=== PATIENT | male | born 1955 | race Caucasian/White ===

== ENCOUNTER 2016-04-25 05:50 | Day surgery (SDC) | payer OTHER ==
[~2016-04-25] VITALS: Ht 168.9 cm; Wt 77.4 kg
[2016-04-25] VITALS (9 sets, daily range): BP systolic 96–132; BP diastolic 64–86; PULSE 65–74; RESP 11–18; O2SAT 95–100
[2016-04-25] MEDS: Lactated Ringer's 1,000 ML IV SCH ×2 (05:20→07:33)
[2016-04-25] MEDS ORDERED: Lidocaine PF 1% 30 mL Inj ONE (05:51)
[2016-04-25] MEDS ORDERED: Propofol 10,000 mCg/mL 20 mL Inj ONE (05:51)
[2016-04-25] MEDS ORDERED: Dexamethasone 4 mg/mL Inj ONE (05:51)
[2016-04-25] MEDS ORDERED: MetoCLOpramide 5 mg/mL 2 mL Inj ONE (05:51)
[2016-04-25] MEDS ORDERED: Ondansetron 2 mg/mL 2 mL Inj ONE (05:51)
--- NOTE | 2016-04-25 07:18 | PCM.HPANE ---
Patient Data Date of Service: Apr 25, 2016 Surgeon Admitting Provider: Attending Provider:Viola Dejesus MD Primary Care Physician:Radha Garcia Other Provider:Akhil Regalado Anesthesia Reason for Visit Malignant Neoplasm Of Bladder Ht/WT & BMI Height (Feet): 5 Height (Inches): 6.50 Weight (Kilograms): 77.4 Body Mass Index 27.00 Allergies Coded Allergies: Penicillins (Verified Allergy, Unknown, UNKNOWN (CHILDHOOD)-HAS TAKEN ANCEF IN THE PAST W/O PROBLEM, 04/24/16) Past Anesthesia History Anesthesia History: Denies:: Anesthesia Reactions, Malignant Hyperthermia Diabetes History Hx Diabetes?: No MRSA MRSA: No Medications Hypertension Medication: No Home Meds Incl Beta Soto: No Discontinued Reported Medications Loratadine (Claritin)10 Mg [id number] Mg PO DAILY PRN allergy sx Ref 0 11/01/15 History History of ENT Problems?: Yes HEENT History: Positive for:: Sinus Problem (HAY FEVER) Hx of Heart Problems?: No Cardiovascular History: Denies:: Chest Pain Coronary Artery Disease Heart Murmur Hypertension Other Cardiac History: denies SOB Hx of Respiratory Problem?: Yes Respiratory History: Denies:: Oxygen Administration Use of C-PAP Machine Other Resp Pertinent History: smokes marijuana daily Hx Neurologic Problems?: No Neurological History: Denies:: CVA Multiple Sclerosis Parkinson's Disease Seizures Hx of GI Problems?: Yes Other GI Pertinent History: h/o ETOH abuse, quit 2009, denies cirrhosis or liver dysfunction Hx of Problems?: Yes Genitourinary History: Denies:: Kidney Stones Other Pertinent History: S/P TURBT FOR BLADDER CA,URETHRAL DILATION IN CHILDHOOD FINISHED BCG 6 WKS AGO MALIGNANT NEOPLASM OF BLADDER=CURRENT PROBLEM Male Hx: Denies:: Prostate Problems Scrotal Mass Testicular Surgery (S/P VASECTOMY) Skin History: Denies:: History Skin Disorders? Pressure Ulcers Hx Musculoskeletal Problems?: No Hx of Psycho/Social Problems?: No Hx Surgeries?: Yes (vasectomy, urethral dil) Hx Any Other Health Problems?: Yes Other History: Positive for:: Cancer (BLADDER) Denies:: Endocrine Disease Hospitalization Thyroid Disease History Blood Transfusions: Denies:: Blood Transfusions Hx Diabetes: No Hx Alcohol Use: No (HX OF ABUSE QUIT 2009)Hx Substance Use: Yes (marijuana - daily, smoke) Smoking Status: Former Smoker Have You Smoked inLast 12 mo: YesApprox How Many Cigarettes/day: CHEWED OFF & ON 30YRS Stop/Bang Treated for Sleep Apnea?: No Do You Have a CPAP Machine?: No S-Snoring: Do You Snore Loudly: No T-Tired: feel tired, fatigued: No O-Obsered: Observed not breath: Yes P-Blood Pressure: treated: No B- Body Mass Index > 35 kg/m2: No A- Age over 50: Yes N- Neck Large Circumference: No G- Gender Male: Yes SURESH Total Score: 3 SURESH Risk Assessment: Low Risk, <3 Yes Risk Assessment Category Category 1A: Patient has history of documented sleep apnea, and HAS NOT received any narcotic, sedative or anesthesia administration during this stay. Category 1B: Patient has history of documented sleep apnea, and HAS received any narcotic , sedative or anesthesia administration during this stay Category 2: Patient has SUSPECTED Obstructive Sleep Apnea, and HAS received any narcotic , sedative or anesthesia administration during this stay. Category 3: Patient has SUSPECTED Obstructive Sleep Apnea and HAS NOT received narcotic, sedative or anesthesia administration during this stay. Category 4: Outpatient in Procedural Areas with known sleep apnea or who screen positive for High Risk via the STOP/BANG questionnaire. Exam Exam Vital Signs Vital Signs Date Time Temp Pulse Resp B/P Pulse Ox O2 Delivery O2 Flow Rate FiO2 04/25/16 06:28 36.0 65 16 132/86 95 Room Air General Appearance: Alert, Oriented X3, Cooperative, No Acute Distress HEENT/AIRWAY: MP 1, Neck Movement (FROM), Mouth Opening (>3), Other (TMD>3) Lungs: Diminished Heart: Exam Unremarkable, Regular Rate/Rhythm, Normal S1, Normal S2, No Murmurs /Rubs/Gallops Meds/Labs/Diagnostics Admission Meds Current Medications Lactated Ringer's (Lr) 1,000 ml @ 120 mls/hr [id number] IV Last administered on t 05:20; Start 04/25/16 at 05:00; Stop 04/25/16 at 13:19 Plan Impression Patient chart reviewed, patient interviewed and anesthestic plan with risks, benefits, and alternatives discussed, and informed consent obtained. NPO Status: 04/24 AT 2100 ASA Physical Status: ASA3 Severe Disease Anesthetic Plan: GA Bene/Risks/Altern/Consents: Yes HP Complete Prior to Induction: Yes Colten Spangler MD Apr 25, 2016 07:18
[2016-04-25] MEDS: CeFAZolin Inj 2 GM in IV Premix 1 EACH IV ONE ×2 (07:29→07:38)
[2016-04-25] MEDS ORDERED: Lactated Ringer's 500 ML IV PRN (07:52)
[2016-04-25] MEDS ORDERED: Lactated Ringer's 1,000 ML IV SCH (07:52)
[2016-04-25] MEDS ORDERED: fentaNYL-PF 50 mCg/mL 2 mL Inj IVPUSH PRN (07:55)
[2016-04-25] MEDS ORDERED: MetoCLOpramide 5 mg/mL 2 mL Inj IVPUSH PRN (07:55)
[2016-04-25] MEDS ORDERED: Phenylephrine 10,000 mCg/mL Inj IVPUSH PRN (07:55)
[2016-04-25] MEDS ORDERED: Dexamethasone 4 mg/mL Inj IVPUSH PRN (07:55)
[2016-04-25] MEDS ORDERED: Ondansetron 2 mg/mL 2 mL Inj IVPUSH PRN (07:55)
[2016-04-25] MEDS ORDERED: EPHEDrine Sulfate 50 mg/mL Inj IVPUSH PRN (07:55)
[2016-04-25] MEDS ORDERED: HYDROmorphone 1 mg/mL Inj IVPUSH PRN (07:55)
[2016-04-25] MEDS ORDERED: HYDROcodone-APAP 5-325 mg Tablet PO PRN (08:25)
--- NOTE | 2016-04-25 11:26 | OP ---
[address] [address] OPERATIVE REPORT PATIENT: KATHI CALDERON : 1955 MR#: [id number] ADMIT: 04/25/2016 JOB ID: [id number] DATE OF SURGERY: 04/25/2016 PREOPERATIVE DIAGNOSIS(ES): History of bladder cancer. POSTOPERATIVE DIAGNOSIS(ES): History of bladder cancer. PROCEDURE PERFORMED: Cystoscopy and bladder biopsies. SURGEON: Viola Dejesus MD SELECTOR PACKER: None. FINDINGS: 1. Bilateral orthotopic ureteral orifices. 2. Mild to moderately erythematous patch in the posterior aspect of the bladder, closer to the base, approximately 2-3 cm. No gross evidence of bladder tumor recurrence. ANESTHESIA: General. ESTIMATED BLOOD LOSS: Less than 5 mL. DRAINS: None. SPECIMENS: Bladder biopsies. COMPLICATIONS: None. CONDITION: Stable. INDICATION FOR PROCEDURE: The patient is a 60-year-old gentleman with a history of high-grade bladder cancer status post BCG induction therapy. He now presents for bladder biopsy. DESCRIPTION OF PROCEDURE: After informed consent was obtained, the patient taken to the operating room. A time-out was performed identifying the correct patient, surgical site, and procedure. General anesthesia was smoothly induced. He was given intravenous antibiotics just prior to the start of the procedure. He has placed in lithotomy position and all pressure points were identified and appropriately padded. His genitals were then prepped and draped in the usual sterile fashion. A 22-Nigerian rigid cystoscope was applied to the patient's urethra and into the bladder. The bladder was drained. The bladder was systematically surveyed with both 30 and 70 degree lenses. The findings were aforementioned. The erythematous patch was sampled twice with cold cup biopsy forceps. Random bladder biopsies proceeded at the lateral aspects of the bladder. Bugbee electrode was used to cauterize the biopsy sites. The bladder was drained. The bladder was reinspected. There was no active bleeding. The instruments were then removed from the patient's body. The patient was then reversed from general anesthesia and taken to the PACU in good and stable condition. [facility]
--- NOTE | 2016-04-25 18:08 | PCM.ANEP2 ---
Post Anesthesia Evaluation ASA/CMS Post Anesthesia VS in Patient's Normal Range?: Yes Resp Stable; Airway Patent?: Yes CV Function & Hydration Stable: Yes Mental Status Recovered?: Yes Pain control Satisfactory?: Yes N/V Control Satisfactory?: Yes Colten Spangler MD Apr 25, 2016 18:08
--- NOTE | 2016-04-25 18:08 | PCM.ANEP1 ---
Post Anesthesia Phase 1 PACU Phase 1 Assessment Date of Service: Apr 25, 2016 Anesthetic Administered: GA Level of Alertness: Awake, talking AGUILAR's with Equal Strength: Yes Pain: No Pain Scale Score: 0 Nausea or Vomiting: No Oxygen Delivery: Simple Mask Lungs: Diminished Colten Spangler MD Apr 25, 2016 18:08
--- NOTE | 2016-04-28 12:28 | PATH ---
SURGICAL PATHOLOGY Attending Physician:Viola Dejesus, CASE STATUS: Signed Out PATIENT NAME: KATHI CALDERON PID: [id number] : 1955 DATE COLLECTED:04/25/2016 16:12 SPECIMEN: 1: Bladder, Biopsy 2: Bladder, Biopsy CLINICAL HISTORY: 1). ERYTHEMATOUS PATCH POSTERIOR BLADDER WALL 2). RANDOM BLADDER BIOPSY FINAL DIAGNOSIS: 1. Posterior Bladder Wall, Biopsy: Chronic active cystitis with granuloma formation. No evidence of malignancy or dysplasia. 2. Random Bladder Biopsy: Chronic active cystitis with granuloma formation. No evidence of malignancy or dysplasia. ICD10: C67 GROSS DESCRIPTION: The specimens are received in formalin, labeled with the patient's name, and sublabeled as the following: (1) erythematous patch; (2) random bladder bx. (1) The specimen consists of multiple fragments of mckeon rubbery semi-translucent tissue (0.6 x 0.2 x <0.1 cm in aggregate). Section code: (1A) tissue. Specimen entirely submitted. (2) The specimen consists of multiple fragments of mckeon semitranslucent tissue (0.5 x 0.2 x <0.1 cm in aggregate). Section code: (2A) tissue. Specimen is entirely submitted. 04/26/16 ICD-9 CODES: CPT CODES: 1: 98273 2: 58827 Electronically Signed Out Trevor Dunn MD [facility]ology [facility], [place] [address] Technical component performed at [facility], [address] [place] [address] Ave[address], [place], [address]
== END 2016-04-25 23:59 | disposition home or self-care (01) ==
LOC: SAS 05:50
PROVIDERS: ATTEND Urology
DX: N30.20 Other chronic cystitis without hematuria (principal); Z85.51 Personal history of malignant neoplasm of bladder; Z87.891 Personal history of nicotine dependence
CPT/HCPCS: 52204; J0690; J1100; J2250; J2405; J2765; J7120